=== PATIENT | male | born 2000 | race Caucasian/White ===

== ENCOUNTER 2021-06-23 15:45 | Emergency (ER) | payer BC, OTHER ==
[~2021-06-23] VITALS: Ht 185.4 cm; Wt 74.8 kg
[2021-06-23 15:57] VITALS: BP 138/92
[2021-06-23] MEDS ORDERED: KETOROLAC 30 MG/ML VIAL IVP ONE (16:00)
[2021-06-23] MEDS ORDERED: NS IV 1000 ML 1,000 ML IV SCH (16:00)
[2021-06-23] MEDS ORDERED: fentaNYL INJ 100 MCG/2 ML AMP IVP ONE (16:00)
[2021-06-23] MEDS ORDERED: ONDANSETRON 4 MG/2 ML (SDV) Z0FRAN IVP ONE (16:00)
--- NOTE | 2021-06-23 16:01 | ED General ---
General Chief Complaint: Back Problems Stated Complaint: LWR RT BACK PAIN History of Present Illness Date Seen by Provider: Jun 23, 2021 Time Seen by Provider: 15:58 Initial Comments Patient presenting to the emergency department for evaluation of sudden onset right flank pain that started 45 minutes prior to arrival. He says that he works on the [email or web address] and he went to urinate and only a small amount of urine came out and then he went to get into his truck and as he was getting into the truck he felt severe pain in the right flank region and an intense sensation that he needs to urinate. He denies any radiating pain to his abdomen or testicle but has some nausea. He denies any similar symptoms in the past and he denies any fevers chills vomiting. He says he is healthy. He appears to be uncomfortable but nontoxic. Allergies and Home Medications Allergies Coded Allergies: codeine (Verified Allergy, Unknown, 06/23/21) Patient Home Medication List Home Medication List Reviewed: Yes Review of Systems Review of Systems Constitutional: no symptoms reported EENTM: no symptoms reported Respiratory: no symptoms reported Cardiovascular: no symptoms reported Gastrointestinal: nausea Genitourinary: hesitancy Musculoskeletal: back pain Skin: no symptoms reported Psychiatric/Neurological: No Symptoms Reported All Other Systems Reviewed Negative Unless Noted: Yes Physical Exam Vital Signs Vital Signs - First Documented 06/23/21 15:57 Temp 36.7 Pulse 100 Resp 18 B/P (MAP) 138/92 (107) Pulse Ox 99 O2 Delivery Room Air Capillary Refill : Height, Weight, BMI Height: '" Weight: lbs. oz. kg; BMI Method: General Appearance: No Apparent Distress, WD/WN HEENT: PERRL/EOMI Neck: Supple Respiratory: No Respiratory Distress Cardiovascular: Regular Rate, Rhythm Gastrointestinal: Non Tender, Soft Back: CVA Tenderness (R) Extremity: Normal Capillary Refill Neurologic/Psychiatric: Alert, Oriented x3 Skin: Warm/Dry Progress/Results/Core Measures Suspected Sepsis SIRS Temperature: Pulse: Respiratory Rate: Laboratory Tests 06/23/21 15:50: White Blood Count 8.3 Blood Pressure / Mean: Laboratory Tests 06/23/21 15:50: Creatinine 0.92, Platelet Count 287, Total Bilirubin 0.7 Results/Orders Lab Results Laboratory Tests Test 06/23/21 15:50 06/23/21 16:06 Range/Units White Blood Count 8.3 4.3-11.0 10^3/uL Red Blood Count 4.58 4.35-5.85 10^6/uL Hemoglobin 14.1 13.3-17.7 G/DL Hematocrit 41 40-54 % Mean Corpuscular Volume 89 80-99 FL Mean Corpuscular Hemoglobin 31 25-34 PG Mean Corpuscular Hemoglobin Concent 35 32-36 G/DL Red Cell Distribution Width 12.1 10.0-14.5 % Platelet Count 287 130-400 10^3/uL Mean Platelet Volume 9.4 7.4-10.4 FL Immature Granulocyte % (Auto) 0 % Neutrophils (%) (Auto) 49 42-75 % Lymphocytes (%) (Auto) 41 12-44 % Monocytes (%) (Auto) 9 0-12 % Eosinophils (%) (Auto) 1 0-10 % Basophils (%) (Auto) 1 0-10 % Neutrophils # (Auto) 4.1 1.8-7.8 X 10^3 Lymphocytes # (Auto) 3.4 1.0-4.0 X 10^3 Monocytes # (Auto) 0.7 0.0-1.0 X 10^3 Eosinophils # (Auto) 0.1 0.0-0.3 10^3/uL Basophils # (Auto) 0.1 0.0-0.1 10^3/uL Immature Granulocyte # (Auto) 0.0 0.0-0.1 10^3/uL Sodium Level 141 135-145 MMOL/L Potassium Level 3.2 L 3.6-5.0 MMOL/L Chloride Level 102 98-107 MMOL/L Carbon Dioxide Level 22 21-32 MMOL/L Anion Gap 17 H 5-14 MMOL/L Blood Urea Nitrogen 16 7-18 MG/DL Creatinine 0.92 0.60-1.30 MG/DL Estimat Glomerular Filtration Rate 102 BUN/Creatinine Ratio 17 Glucose Level 112 H 70-105 MG/DL Calcium Level 10.0 8.5-10.1 MG/DL Corrected Calcium 8.5-10.1 MG/DL Total Bilirubin 0.7 0.1-1.0 MG/DL Aspartate Amino Transf (AST/SGOT) 15 5-34 U/L Alanine Aminotransferase (ALT/SGPT) 12 0-55 U/L Alkaline Phosphatase 50 40-136 U/L Total Protein 8.3 H 6.4-8.2 GM/DL Albumin 5.1 H 3.2-4.5 GM/DL Urine Color YELLOW Urine Clarity SL CLOUDY Urine pH 8.5 5-9 Urine Specific [place] 1.015 L 1.016-1.022 Urine Protein NEGATIVE NEGATIVE Urine Glucose (UA) NEGATIVE NEGATIVE Urine Ketones NEGATIVE NEGATIVE Urine Nitrite NEGATIVE NEGATIVE Urine Bilirubin NEGATIVE NEGATIVE Urine Urobilinogen 1.0 < = 1.0 MG/DL Urine Leukocyte Esterase NEGATIVE NEGATIVE Urine RBC (Auto) NEGATIVE NEGATIVE Urine RBC NONE /HPF Urine WBC NONE /HPF Urine Squamous Epithelial Cells 0-2 /HPF Urine Crystals PRESENT H /LPF Urine Amorphous Sediment LARGE ALEKSANDR PHOSPHATE H /LPF Urine Bacteria NEGATIVE /HPF Urine Casts NONE /LPF Urine Mucus NEGATIVE /LPF Urine Culture Indicated NO My Orders Orders - DOTTIE PEARSON DO Iv/Invasive Line Insertion .IV start (06/23/21 15:56) Cbc With Automated Diff (06/23/21 15:56) Comprehensive Metabolic Panel (06/23/21 15:56) Ua Culture If Indicated (06/23/21 15:56) Ct Abdomen/Pelvis Wo (06/23/21 15:56) Fentanyl Inj (Sublimaze Injection) (06/23/21 16:00) Ondansetron Injection (Zofran Injectio (06/23/21 16:00) Ketorolac Injection (Toradol Injection) (06/23/21 16:00) Ns Iv 1000 Ml (Sodium Chloride 0.9%) (06/23/21 16:00) Tamsulosin Capsule (Flomax Capsule) (06/23/21 17:00) Morphine Injection (Morphine Injection (06/23/21 16:46) Medications Given in ED Current Medications Medications Dose Ordered Sig/Laura Route Start Time Stop Time Status Last Admin Dose Admin Fentanyl Citrate 100 mcg ONCE ONCE IVP 06/23/21 16:00 06/23/21 16:01 DC 06/23/21 16:03 100 MCG Ketorolac Tromethamine 15 mg ONCE ONCE IVP 06/23/21 16:00 06/23/21 16:01 DC 06/23/21 16:04 15 MG Ondansetron HCl 4 mg ONCE ONCE IVP 06/23/21 16:00 06/23/21 16:01 DC 06/23/21 16:04 4 MG Vital Signs/I&O 06/23/21 15:57 Temp 36.7 Pulse 100 Resp 18 B/P (MAP) 138/92 (107) Pulse Ox 99 O2 Delivery Room Air Capillary Refill : Progress Note : Progress Note Patient with symptoms that could represent a kidney stone. I will check labs imaging treat symptoms and reassess. Patient does have findings of right UVJ calculus that is 3 mm in size with findings of hydronephrosis. His labs and urinalysis are normal and his pain has improved significantly and he feels comfortable going home and would like a trial of passage. Patient was told to drink plenty of fluids call the urologist tomorrow for appointment if he has worsening pain fevers vomiting or other concerns he would have to come back to the emergency department so that he could be transferred to a facility where he could see a urologist for a procedure. Patient aware and agreeable with plan for discharge and verbalized understanding of the need for short-term follow-up and strict ED return precautions discussed including worsening pain fevers vomiting or other general concerns. Departure Impression Primary Impression: Right ureteral stone Additional Impression: Hydronephrosis, right Disposition: 01 HOME, SELF-CARE Condition: Stable Departure-Patient Inst. Referrals: BRISEIDA MORENO MD Patient Instructions: Renal Colic Add. Discharge Instructions: Drink plenty of fluids, call the urologist tomorrow. Come back with any concerns. Thank you! All discharge instructions reviewed with patient and/or family. Voiced understanding. Scripts Tamsulosin HCl (Flomax) 0.4 Mg Cap 0.4 MG PO qhs, #7 CAP Prov: DOTTIE PEARSON DO 06/23/21 Ondansetron (Ondansetron Odt) 4 Mg Tab.rapdis 4 MG PO Q6H PRN for NAUSEA/VOMITING-1ST LINE, #14 TAB Prov: DOTTIE PEARSON DO 06/23/21 Oxycodone HCl/Acetaminophen (Percocet 5-325 mg Tablet) 1 Each Tablet 1 TAB PO Q4H for PAIN-MODERATE MDD 6 TABS for 7 Days, #14 TAB Prov: DOTTIE PEARSON DO 06/23/21 Ibuprofen (Ibuprofen) 600 Mg Tablet 600 MG PO Q6H, #20 TAB Prov: DOTTIE PEARSON DO 06/23/21 DOTTIE PEARSON DO Jun 23, 2021 16:00
[2021-06-23 16:08] LABS: HEMATOCRIT 41 % (40-54); HEMOGLOBIN 14.1 G/DL (13.3-17.7); MEAN CORPUSCULAR HEMOGLOBIN 31 PG (25-34); MEAN CORPUSCULAR HGB CONC 35 G/DL (32-36); MEAN CORPUSCULAR VOLUME 89 FL (80-99); WHITE BLOOD COUNT 8.3 10^3/uL (4.3-11.0)
[2021-06-23 16:09] LABS: BASOPHILS # (AUTO) 0.1 10^3/uL (0.0-0.1); BASOPHILS % (AUTO) 1 % (0-10); EOSINOPHILS # (AUTO) 0.1 10^3/uL (0.0-0.3); EOSINOPHILS % (AUTO) 1 % (0-10); LYMPHOCYTES # (AUTO) 3.4 X 10^3 (1.0-4.0); LYMPHOCYTES % (AUTO) 41 % (12-44); MEAN PLATELET VOLUME 9.4 FL (7.4-10.4); MONOCYTES # (AUTO) 0.7 X 10^3 (0.0-1.0); MONOCYTES % (AUTO) 9 % (0-12); NEUTROPHILS # (AUTO) 4.1 X 10^3 (1.8-7.8); NEUTROPHILS % (AUTO) 49 % (42-75); PLATELET COUNT 287 10^3/uL (130-400)
[2021-06-23 16:09] LABS: BILIRUBIN,URINE NEGATIVE (NEGATIVE); CLARITY,URINE SL CLOUDY; COLOR,URINE YELLOW; GLUCOSE, URINE (UA) NEGATIVE (NEGATIVE); KETONES,URINE NEGATIVE (NEGATIVE); LEUKOCYTE ESTERASE ,URINE NEGATIVE (NEGATIVE); NITRITE,URINE NEGATIVE (NEGATIVE); PH,URINE 8.5 (5-9); PROTEIN,URINE NEGATIVE (NEGATIVE)
[2021-06-23 16:16] LABS: AMORPHOUS SEDIMENT,UR LARGE AMOR PHOSPHATE /LPF; BACTERIA,URINE NEGATIVE /HPF; SQUAMOUS EPITHELIAL CELL,UR 0-2 /HPF
[2021-06-23 16:22] LABS: BILIRUBIN,TOTAL 0.7 MG/DL (0.1-1.0); BUN/CREATININE RATIO 17; CARBON DIOXIDE 22 MMOL/L (21-32); CHLORIDE 102 MMOL/L (98-107); CREATININE SERUM 0.92 MG/DL (0.60-1.30); GFR ESTIMATED 102; GLUCOSE 112 MG/DL (70-105); POTASSIUM 3.2 MMOL/L (3.6-5.0); SODIUM 141 MMOL/L (135-145)
[2021-06-23 16:23] LABS: ALANINE AMINOTRANSFERASE 12 U/L (0-55); ALBUMIN 5.1 GM/DL (3.2-4.5); ALKALINE PHOSPHATASE 50 U/L (40-136); TOTAL PROTEIN 8.3 GM/DL (6.4-8.2)
--- NOTE | 2021-06-23 16:25 | Diagnostic Imaging Report ---
PROCEDURE: CT abdomen and pelvis without contrast. TECHNIQUE: Multiple contiguous axial images were obtained through the abdomen and pelvis without the use of intravenous contrast. Auto Exposure Controls were utilized during the CT exam to meet ALARA standards for radiation dose reduction. INDICATION: Acute right flank pain. COMPARISON: No prior studies are available for comparison. FINDINGS: The lung bases are clear. The liver and gallbladder are unremarkable. No biliary ductal dilatation is seen. Pancreas and spleen are unremarkable. No adrenal mass is identified. There is some increased density in the medullary portions of both kidneys suspicious for medullary nephrocalcinosis. In addition, the right ureter appears to be dilated to the level of the UVJ where there is a 3 mm calculus. The left ureter is unremarkable. Aorta is unremarkable. Bowel loops are normal in caliber. Appendix is visualized and unremarkable. There is no free fluid or fluid collection. IMPRESSION: 1. Features suspicious for bilateral medullary nephrocalcinosis. 2. A 3 mm right UVJ calculus producing moderate hydroureteronephrosis. Dictated by: Dictated on workstation # [id number]
[2021-06-23] MEDS ORDERED: morphine INJ 10 MG/ML 1ML (SYR OR VIAL) IVP STA (16:46)
[2021-06-23] MEDS ORDERED: TMSL.4C PO (16:50)
[2021-06-23] MEDS ORDERED: OXYC1TAB87 PO (16:50)
[2021-06-23] MEDS ORDERED: ONDA4TAB11 PO (16:50)
[2021-06-23] MEDS ORDERED: IBUP-1773 PO (16:50)
[2021-06-23] MEDS ORDERED: TAMSULOSIN 0.4 MG (FLOMAX) CAP PO SCH (17:00)
== END 2021-06-23 17:10 | disposition home or self-care (01) ==
LOC: ER FS 15:47
DX: N13.2 Hydronephrosis with renal and ureteral calculous obstruction (principal)
CPT/HCPCS: 36415; 74176; 80053; 81000; 85025; 96361; 96374; 96375